=== PATIENT | female | born 1990 | race Caucasian/White ===

== ENCOUNTER 2019-04-07 05:40 | Inpatient (IN) | payer OTHER ==
[~2019-04-07] VITALS: Ht 162.6 cm; Wt 59.0 kg
[2019-04-08] MEDS ORDERED: FLAGYL500MG PO (17:48)
[2019-04-08] MEDS ORDERED: CIPRO500 MG PO (17:48)
[2019-04-08] MEDS ORDERED: INTESTINEX680 M1 PO (17:49)
[2019-04-08] MEDS ORDERED: PERCOCET 5-3251 EACH PO (17:50)
[2019-04-08] MEDS ORDERED: POLY119PG PO (17:51)
== END 2019-04-08 18:29 | disposition home or self-care (01) | DRG 349 ==
LOC: CIR.AMB 05:40 → SURG 11:58
PROVIDERS: ADMIT Surgery
PROC: 0WQN0ZZ Repair Female Perineum, Open Approach (ICD-10-PCS; 2019-04-07)
PROC: 0DUR07Z Supplement Anal Sphincter with Autologous Tissue Substitute, Open Approach (ICD-10-PCS; principal; 2019-04-07 07:00)
DX: K62.89 Other specified diseases of anus and rectum (principal); R15.9 Full incontinence of feces; Z90.49 Acquired absence of other specified parts of digestive tract

== ENCOUNTER → 2022-05-29 | Day surgery (SDC) | payer OTHER ==
[~2022-05-29] VITALS: Ht 157.5 cm; Wt 56.2 kg
[~2022-05-29] MED LIST: CIPRO500 MG PO; FLAGYL500MG PO; INTESTINEX680 M1 PO; MACROBID 100 M100 MG PO; PERCOCET 5-3251 EACH PO; POLY119PG PO; ULTRACET PO
== END | disposition home or self-care (01) ==
LOC: ADM 05-17 11:15 → CIR.AMB 05-22 08:30
PROVIDERS: ATTEND Obstetrics & Gynecology Gynecology
DX: N93.9 Abnormal uterine and vaginal bleeding, unspecified (principal); N36.41 Hypermobility of urethra; Z20.822 Contact with and (suspected) exposure to COVID-19
CPT/HCPCS: 57288; C1781

== ENCOUNTER 2023-01-15 05:25 | Day surgery (SDC) | payer OTHER ==
[~2023-01-15] VITALS: Ht 157.5 cm; Wt 60.8 kg
[2023-01-15] MEDS ORDERED: TRAM1TAB98 PO (10:17)
== END 2023-01-15 15:30 | disposition home or self-care (01) ==
LOC: CIR.AMB 05:25
PROVIDERS: ATTEND Obstetrics & Gynecology Gynecology
DX: N81.0 Urethrocele (principal); R39.15 Urgency of urination; R23.4 Changes in skin texture; Z20.822 Contact with and (suspected) exposure to COVID-19